=== PATIENT | female | born 1955 | race Caucasian/White ===

== ENCOUNTER → 2017-01-01 | Outpatient (CLI) | payer SELFPAY | LOC: OD 15:32 | PROVIDERS: ATTEND Internal Medicine | DX: E03.9 Hypothyroidism, unspecified (principal) | CPT/HCPCS: 36415; 84443 ==

== ENCOUNTER 2017-10-31 09:13 | Emergency (ER) | payer SELFPAY ==
[2017-10-31 09:34] VITALS: BP 125/75
[2017-10-31] MEDS ORDERED: BENZONATATE 100 MG CAPSULE PO ONE (09:36)
--- NOTE | 2017-10-31 09:39 | ER Document Report ---
ED General - General Chief Complaint: Congestion Stated Complaint: CONGESTION Time Seen by Provider: 10/31/17 09:23 Notes: 62-year-old female here with complaints of cough congestion runny nose sore throat ongoing for the past day or 2. She has been using Robitussin over-the- counter cough medication for the symptoms. She has been eating drinking urinating defecating per usual. She has a friend who is sick with the same symptoms and believes she contracted the illness from her friend. She has not received her pneumonia vaccine recently. TRAVEL OUTSIDE OF THE [place] IN LAST 30 DAYS: No - Related Data Allergies/Adverse Reactions: No Known Allergies Allergy (Unverified 10/31/17 09:14) Past Medical History - Social History Smoking Status: Current Every Day Smoker Chew tobacco use (# tins/day): No Frequency of alcohol use: None Drug Abuse: None Family History: Reviewed & Not Pertinent Patient has suicidal ideation: No Patient has homicidal ideation: No Renal/ Medical History: Denies: Hx Peritoneal Dialysis Review of Systems - Review of Systems Notes: See history of present illness for pertinent positive review of systems; otherwise all review of systems have been reviewed and are negative Physical Exam - Vital signs Vitals: Temp Pulse Resp BP Pulse Ox 98.0 F 75 18 125/75 100 10/31/17 09:28 10/31/17 09:28 10/31/17 09:28 10/31/17 09:28 10/31/17 09:28 - Notes Notes: PHYSICAL EXAMINATION: GENERAL: Well-appearing and in no acute distress. HEAD: Atraumatic, normocephalic. EYES: Pupils equal round and reactive to light, extraocular movements intact, sclera anicteric, conjunctiva are normal. ENT: nares patent, oropharynx minimal erythema without tonsillar exudates. Moist mucous membranes. NECK: Normal range of motion, supple without lymphadenopathy LUNGS: CTAB and equal. No wheezes rales or rhonchi. HEART: Regular rate and rhythm without murmurs ABDOMEN: Soft, no tenderness. No facial grimacing/wincing upon palpation. No guarding, no rebound. EXTREMITIES: Normal range of motion, no pitting edema. No cyanosis. NEUROLOGICAL: Cranial nerves grossly intact. Normal sensory/motor exams. PSYCH: Normal mood, normal affect. SKIN: Warm, Dry, normal turgor, no rashes or lesions noted Course - Re-evaluation Re-evalutation: 10/31/17 09:38 MEDICAL DECISION MAKING: Concern for upper respiratory infection, most likely viral Home with prescription Tessalon Perles Instructed patient on fever control with Tylenol and/or (if applicable) Motrin Also discussed keeping hydrated with water or Gatorade/Pedialyte Instructed follow-up PCP next day or few Patient understands and agrees to the plan of care - Vital Signs Vital signs: Temp Pulse Resp BP Pulse Ox 98.0 F 75 18 125/75 100 10/31/17 09:28 10/31/17 09:28 10/31/17 09:28 10/31/17 09:28 10/31/17 09:28 Discharge - Discharge Clinical Impression: Acute URI Condition: Good Disposition: HOME, SELF-CARE Additional Instructions: You were seen in the emergency department at [facility]. You likely have an upper respiratory infection, most likely viral. Use Motrin and/ or Tylenol for fever control. You may use saline nasal spray for stuffy nose. Use the prescribed Tessalon as needed for cough. Stay hydrated. Please followup with your primary physician in the next few days for further management /evaluation. Please return to the emergency department for worsening of symptoms or any symptom that you deem to be concerning or life-threatening. Thank you for allowing us to be part of your care. This is your school/work note for your Emergency Department evaluation today. Prescriptions: Benzonatate [Tessalon Perles 100 mg Capsule] 100 mg PO [id number] PRN #40 capsule PRN Reason: Referrals: OSMAR HER MD [Primary Care Provider] - Follow up as needed
== END 2017-10-31 09:54 | disposition home or self-care (01) ==
LOC: ER 09:13
DX: J06.9 Acute upper respiratory infection, unspecified (principal); R09.89 Other specified symptoms and signs involving the circulatory and respiratory systems; J02.9 Acute pharyngitis, unspecified; F17.200 Nicotine dependence, unspecified, uncomplicated
CPT/HCPCS: 99283